=== PATIENT | male | born 1955 | race Caucasian/White ===

== ENCOUNTER 2024-05-09 07:38 | Day surgery (SDC) | payer BC, OTHER ==
[2024-05-04 15:10] VITALS: BMI 24.2
[2024-05-09] MEDS ORDERED: LIDOCAINE HCL/PF 2% SDV 5ML VIAL ONE (07:57)
[2024-05-09] MEDS ORDERED: PROPOFOL 160 ML ONE (07:57)
[2024-05-09 08:49] VITALS: RESP 18; TEMP 97.5
[2024-05-09 09:11] VITALS: BP 108/78; PULSE 62
== END 2024-05-09 09:10 | disposition home or self-care (01) ==
LOC: FASU-ENDO 07:38
PROVIDERS: ATTEND Internal Medicine Gastroenterology
PROC: 3E0H8KZ Introduction of Other Diagnostic Substance into Lower GI, Via Natural or Artificial Opening Endoscopic (ICD-10-PCS; 2024-05-09)
PROC: 0DBH8ZX Excision of Cecum, Via Natural or Artificial Opening Endoscopic, Diagnostic (ICD-10-PCS; principal; 2024-05-09 08:07)
DX: Z12.11 Encounter for screening for malignant neoplasm of colon (principal); D12.0 Benign neoplasm of cecum; K57.30 Diverticulosis of large intestine without perforation or abscess without bleeding
CPT/HCPCS: 88305-TC